=== PATIENT | male | born 1935 | race Two or more races ===

== ENCOUNTER 2024-01-07 16:50 | Emergency (ER) | payer OTHER ==
[~2024-01-07] VITALS: Ht 167.6 cm; Wt 52.9 kg
[2024-01-07 17:23] VITALS: BP 167/93; PULSE 77; RESP 20; O2SAT 98
== END 2024-01-07 17:17 | disposition left against medical advice (07) ==
LOC: ER 16:50
DX: R10.9 Unspecified abdominal pain (principal); R63.0 Anorexia; K59.00 Constipation, unspecified; Z53.21 Procedure and treatment not carried out due to patient leaving prior to being seen by health care provider